=== PATIENT | female | born 1995 | race Two or more races ===

== ENCOUNTER 2019-11-01 11:11 | Observation (INO) | payer MEDICAID ==
[2019-11-01] MEDS ORDERED: PREN-96 PO (11:50)
== END 2019-11-01 12:20 | disposition home or self-care (01) | DRG 566 ==
LOC: LDRP 11:11
PROVIDERS: ADMIT Specialist; ATTEND Specialist
DX: O69.81X0 Labor and delivery complicated by cord around neck, without compression, not applicable or unspecified (principal); Z3A.38 38 weeks gestation of pregnancy
CPT/HCPCS: 59025; 76818; 81002; G0378

== ENCOUNTER 2019-11-09 15:11 | Observation (INO) | payer MEDICAID ==
[~2019-11-09 15:11] MED LIST: PREN-96 PO
== END 2019-11-09 16:37 | disposition home or self-care (01) | DRG 566 ==
LOC: LDRP 15:11
PROVIDERS: ADMIT Specialist; ATTEND Specialist
DX: O69.81X0 Labor and delivery complicated by cord around neck, without compression, not applicable or unspecified (principal); Z3A.39 39 weeks gestation of pregnancy
CPT/HCPCS: 59025; 76818; 81002; G0378

== ENCOUNTER 2019-11-11 11:20 | Observation (INO) | payer MEDICAID ==
[2019-11-11 12:54] LABS: Urine Bacteria FEW /hpf (None Seen); Urine Blood Negative /uL (Negative); Urine Mucus FEW (None Seen); Urine Specific Gravity 1.026 (1.001-1.035); Urine WBC 42 /hpf (0 - 5)
== END 2019-11-11 13:08 | disposition home or self-care (01) | DRG 566 ==
LOC: LDRP 11:20
PROVIDERS: ADMIT Specialist; ATTEND Specialist
DX: O48.0 Post-term pregnancy (principal); Z3A.40 40 weeks gestation of pregnancy
CPT/HCPCS: 59025; 76818; 81001; 81002; G0378

== ENCOUNTER 2019-11-13 04:50 | Observation (INO) | payer MEDICAID ==
[~2019-11-13] VITALS: Ht 154.9 cm; Wt 59.4 kg
[2019-11-13] MEDS ORDERED: FOLI1TAB6 PO (07:52)
== END 2019-11-13 08:30 | disposition home or self-care (01) | DRG 566 ==
LOC: LDRP 04:50
PROVIDERS: ADMIT Obstetrics & Gynecology; ATTEND Obstetrics & Gynecology
DX: O62.9 Abnormality of forces of labor, unspecified (principal); O26.853 Spotting complicating pregnancy, third trimester; O48.0 Post-term pregnancy; Z3A.40 40 weeks gestation of pregnancy
CPT/HCPCS: 59025; 76818; 81002; G0378

== ENCOUNTER 2019-11-13 20:26 | Inpatient (IN) | payer MEDICAID ==
[~2019-11-13] VITALS: Ht 154.9 cm; Wt 59.4 kg
[~2019-11-13 20:26] MED LIST changes: +FOLI1TAB6 PO
[2019-11-13] MEDS ORDERED: LACTATED RINGER'S 1,000 ML IV SCH (20:40)
[2019-11-13] MEDS ORDERED: LACT. RINGERS/OXYTOCIN 20UNITS 1,000 ML IV SCH (20:40)
[2019-11-13] MEDS ORDERED: CARBOPROST TROMETHAMINE 250 MCG/1ML VIAL IM PRN (20:45)
[2019-11-13] MEDS ORDERED: PHISODERM TOP SOLN 240ML BTL TOP PRN (20:45)
[2019-11-13] MEDS ORDERED: DERMOPLAST 60ML BOTTLE TOP PRN (20:45)
[2019-11-13] MEDS ORDERED: METHYLERGONOVINE MALEATE 0.2 MG/ML AMP IM PRN (20:45)
[2019-11-13] MEDS ORDERED: LIDOCAINE 2%HCL (LOCAL ANESTH.) INJ 20ML MDV ID ONE (20:45)
[2019-11-13] MEDS ORDERED: WITCH HAZEL-GLYCERIN PAD TOP PRN (20:45)
[2019-11-13] MEDS ORDERED: LACT. RINGERS/OXYTOCIN 20UNITS 1,000 ML IV ONE (20:57)
[2019-11-13] MEDS ORDERED: WITCH HAZEL-GLYCERIN PAD TOP ONE (20:58)
[2019-11-13] MEDS ORDERED: METHYLERGONOVINE MALEATE 0.2 MG/ML AMP IM ONE (20:58)
[2019-11-13] MEDS ORDERED: LIDOCAINE 2%HCL (LOCAL ANESTH.) INJ 20ML MDV ONE (20:58)
[2019-11-13] MEDS ORDERED: PHISODERM TOP SOLN 240ML BTL TOP ONE (20:58)
[2019-11-13] MEDS ORDERED: DERMOPLAST 60ML BOTTLE TOP ONE (20:58)
[2019-11-13 21:21] LABS: Basophils # (auto) 0 10 ^3/uL (0-0.2); Basophils % (auto) 0.2 % (0.0-2.0); Eosinophils # (auto) 0 10 ^3/uL (0-0.8); Hematocrit 34.7 % (36.0-46.0); Hemoglobin 11.4 g/dL (12.2-16.2); Lymphocytes # (auto) 1.4 10 ^3/uL (0.4-5.4); Lymphocytes % (auto) 11.6 % (10.0-50.0); Mean Corpuscular Hemoglobin 27.5 pg (28.0-32.0); Mean Corpuscular Hgb Conc. 32.8 g/dL (32.0-36.0); Monocytes # (auto) 0.6 10 ^3/uL (0-1.3); Neutrophils # (auto) 10.1 10 ^3/uL (1.6-8.6); Neutrophils % (auto) 83.2 % (37.0-80.0); Platelet Count (auto) 278 10^3/uL (140-450); Red Blood Cells 4.13 10^6/uL (4.0-5.20); Red Cell Distribution Width 20.9 % (11.8-14.3); White Blood Cell 12.2 10^3/uL (4.4-10.8)
[2019-11-13 21:38] LABS: INR 0.93 (0.9-1.15); Partial Thromboplastin Time 26.8 sec (23.64-32.05)
[2019-11-13 21:39] LABS: Albumin 2.7 g/dL (3.4-5.0); Calcium 8.5 mg/dL (8.5-10.1); Potassium 3.4 mmol/L (3.5-5.1)
[2019-11-13 21:41] LABS: BUN/Creatinine Ratio 14.5
[2019-11-13 21:42] LABS: Alcohol, Urine < 3.0 mg/dL (0-10); Amphetamine Screen, Urine NEGATIVE (NEGATIVE); Barbiturate Scree,Urine NEGATIVE (NEGATIVE); Benzodiazephine Screen, Urine NEGATIVE (NEGATIVE); Cannabinoid Screen, Urine NEGATIVE (NEGATIVE); Cocaine Screen, Urine NEGATIVE (NEGATIVE); Opiate Scree,Urine NEGATIVE (NEGATIVE); Phencyclidine Screen, Urine NEGATIVE (NEGATIVE)
[2019-11-13 21:44] LABS: Urine Bacteria NONE SEEN /hpf (None Seen); Urine Blood 1+ /uL (Negative); Urine Mucus FEW (None Seen); Urine Specific Gravity 1.014 (1.001-1.035); Urine WBC 43 /hpf (0 - 5)
[2019-11-13 21:44] LABS: Bilirubin, Total 0.8 mg/dL (0.2-1.0); Total Protein 6.9 g/dL (6.4-8.2)
--- NOTE | 2019-11-13 21:59 | NUR ---
Teaching: Reviewed information in [employer] booklet with patient. Discussed benefits of and risks associated with not . Discussed different positions, proper latch, feeding cues, and baby-led . Provided information of medication side effects related to . All questions and concerns addressed at this time. Patient verbalized understanding of information.
[2019-11-13] MEDS: IBUPROFEN 600 MG TAB PO PRN (23:04)
[2019-11-14] VITALS (7 sets, daily range): BP systolic 90–120; BP diastolic 52–77
--- NOTE | 2019-11-14 00:20 | NUR ---
Ambulation: Patient OOB with standby assistance by RN. Patient ambulated to bathroom with steady gait. Patient able to void 500ml without difficulty. [facility] teaching provided with returned demonstration by patient. Clean gown provided and bed linen changed. Patient ambulated back to bed with steady gait and no distress noted.
[2019-11-14] MEDS: ACETAMINOPHEN 325 MG TAB PO PRN ×3 (01:52→17:50)
[2019-11-14] MEDS: IBUPROFEN 600 MG TAB PO PRN (04:04)
--- NOTE | 2019-11-14 04:30 | NUR ---
[facility] Bath: Pre-bath temp 99.0 , hair washed at sink with the completion of the bath done under radiant warmer. tolerated well, temperature after bath was 98.6.
--- NOTE | 2019-11-14 19:30 | NUR ---
IV removal IV DC'd with clean sterile technique, catheter fully intact. Pressure dressing applied to site. Patient tolerated well.
[2019-11-15 03:00] VITALS: BP 111/58
[2019-11-15 06:51] VITALS: BP 107/65
[2019-11-15] MEDS: ACETAMINOPHEN 325 MG TAB PO PRN (07:29)
[2019-11-15 10:30] VITALS: BP 100/55
--- NOTE | 2019-11-15 11:24 | NUR ---
Discharge: Discharge instructions given as ordered. Pt encouraged to follow up with [facility] as instructed. All questions and concerns addressed. Patient verbalized understanding. Medication reconciliation completed and copy given to patient. Patient encouraged to prepare to depart unit.Discharge: Patient taken to vehicle via wheelchair with all personal belongings, accompanied by staff and family member. No distress noted at time of departure, no adverse changes in status since initial assessment.
[2019-11-16 12:34] LABS: RPR Non Reactive (Non Reactive)
== END 2019-11-15 11:24 | disposition home or self-care (01) | DRG 560 ==
LOC: OBSVTOIN 20:26 → LDRP 20:26
PROVIDERS: ADMIT Specialist; ATTEND Specialist
PROC: 10E0XZZ Delivery of Products of Conception, External Approach (ICD-10-PCS; principal; 2019-11-13)
DX: O62.3 Precipitate labor (principal); Z37.0 Single live birth; Z3A.40 40 weeks gestation of pregnancy
CPT/HCPCS: 36415; 59025; 59409; 76818; 80053; 80307; 81001; 81002; 84112; 85025; 85610; 85730; 86592; 86850; 86900; 86901; 96360; 96361; 96365; 96366; G0378; J2590